=== PATIENT | male | born 1950 | race Caucasian/White ===

== ENCOUNTER 2017-11-09 17:33 | Emergency (ER) | payer BC ==
[~2017-11-09] VITALS: Ht 182.9 cm; Wt 100.0 kg
[~2017-11-09 17:33] MED LIST: FLOMAX0.4 MG PO; LIPITOR40 MG PO; METFORMIN HCL500 MG PO; NOHOMEMEDS; RAMIPRIL1.25 MG PO
[2017-11-09] MEDS ORDERED: MOBIC7.5 MG PO (19:15)
[2017-11-09] MEDS ORDERED: SKELAXIN800 MG PO (19:15)
[2017-11-09] MEDS ORDERED: PERCOCET 5/31 TABLET PO (19:15)
[2017-11-09 19:30] VITALS: BP 135/71
== END 2017-11-09 19:31 | disposition home or self-care (01) ==
LOC: EME 17:33
DX: M54.32 Sciatica, left side (principal); M16.12 Unilateral primary osteoarthritis, left hip; I25.2 Old myocardial infarction; E78.5 Hyperlipidemia, unspecified; E11.9 Type 2 diabetes mellitus without complications; Z79.84 Long term (current) use of oral hypoglycemic drugs; Z79.82 Long term (current) use of aspirin; Z87.442 Personal history of urinary calculi
CPT/HCPCS: 73502; 99281; 99284; J3010

== ENCOUNTER → 2018-01-02 | Outpatient (CLI) | payer BC ==
[~2018-01-02] MED LIST changes: +MOBIC7.5 MG PO; +PERCOCET 5/31 TABLET PO; +SKELAXIN800 MG PO
== END | disposition home or self-care (01) ==
LOC: CDC 11:45
DX: Z01.810 Encounter for preprocedural cardiovascular examination (principal); R97.20 Elevated prostate specific antigen [PSA]; R94.31 Abnormal electrocardiogram [ECG] [EKG]
CPT/HCPCS: 93000